=== PATIENT | male | born 1975 | race Caucasian/White ===

== ENCOUNTER 2019-12-11 13:25 | Inpatient (IN) | payer BC ==
[2019-12-11] MEDS ORDERED: Insulin Regular, Human 100 Units/ML 3 ML Vial IV ONE ×2 (14:21→17:33)
[2019-12-11] MEDS ORDERED: Sodium Chloride 0.9% 1,000 ML IV SCH ×2 (14:30→17:00)
[2019-12-11] MEDS: LORazepam 1 MG Tab PO PRN ×3 (14:44→22:24)
[2019-12-11] MEDS: glipiZIDE 5 MG Tab.ER PO SCH (15:06)
[2019-12-11] MEDS ORDERED: traZODone 100 MG Tab PO SCH (17:00)
[2019-12-11] MEDS ORDERED: Acetaminophen 325 MG Tab PO PRN (17:51)
--- NOTE | 2019-12-11 20:06 | HP ---
ADMISSION DATE: 12/11/2019 CHIEF COMPLAINT: Diabetic ketoacidosis. HISTORY OF PRESENT ILLNESS: Chava is a 44-year-old man who was first noted to have an elevated blood sugar back in June of 2019. He did not pursue this back at that time when recommended, and now when seen in the office today by Dr. Carver, was found to have acidemia, hyponatremia, and a blood sugar of 313. He had lost 20 pounds of weight in the last 8 weeks and went in because of extreme weakness, fatigue, thirst, and urinary frequency. Chava denies any recent infections, fever, chills, sweats, cough, any pain, UTI symptoms, vomiting, diarrhea, etc. PAST MEDICAL HISTORY: He was hospitalized for pancreatitis and states that he had surgical removal of a pseudocyst. He also shows had previous admissions for alcoholism with DTs back in 2014, chronic pancreatitis back in 2012. He has had longstanding anxiety disorder. As of November 2018, he is still felt to be actively practicing alcoholic. MEDICATIONS: 1. Seroquel 600 mg at bedtime. 2. Ativan 1 mg t.i.d. p.r.n. ALLERGIES: None known. HABITS: Nonsmoker. He reports he drinks 2 beers three times a week. He drinks multiple caffeinated sodas, both Coke, Mountain Dew, etc. No coffee. FAMILY HISTORY: The patient's father is 75 and healthy. Mother is age 75 and has anxiety. He has 4 siblings, two with anxiety disorder. SOCIAL HISTORY: The patient has been for 20 years. He has 3 children; ages 16, 15, and 20 months. He works at [employer] and his is a it manager at [employer]. REVIEW OF SYSTEMS: GENERAL: No seizures, syncope. He has a weight loss as mentioned. SKIN: No rash. HEENT: No recent changes in hearing or vision. He does not wear glasses. No sore throat or URI. PULMONARY: No cough or purulent sputum. CARDIOVASCULAR: No chest pain or palpitations. GASTROINTESTINAL: No abdominal pain, nausea, diarrhea, constipation, hematochezia, or melena. GENITOURINARY: He does report urinary frequency and nocturia x4 to 5. EXTREMITIES: No swelling, joint inflammation, skin rash. PHYSICAL EXAMINATION: GENERAL: He is alert and comfortable, but somewhat anxious. VITAL SIGNS: Blood pressure 104/62, pulse 92 and regular, respirations normal, temperature 96.9, weight 169 pounds. SKIN: Anicteric, warm, dry without rash. HEENT: Show clear TMs. Pupils equal and reactive. Oropharynx clear. NECK: Supple. Thyroid is normal. LUNGS: Clear to the bases. BACK: Straight, nontender. HEART: Regular without murmur, rub, or gallop. ABDOMEN: Normal bowel sounds. Soft and nontender. No masses or organomegaly. EXTREMITIES: Warm, well perfused. Good pulses. No edema. LABORATORY DATA: Glucose 313, sodium 127, BUN 11, creatinine 1.17. Glycated hemoglobin 13.7. ASSESSMENT: 1. Diabetic ketoacidosis with type 2 diabetes, uncontrolled. 2. Recent exacerbation in type 2 diabetes. 3. Acute on chronic alcoholism. 4. Chronic anxiety disorder. PLAN: He is admitted for IV rehydration with normal saline. We will use insulin for glucose management. Start him on oral agent for diabetes and arrange diabetic teaching. /[id number] BROOKS/JOSE R
[2019-12-11] MEDS ORDERED: buPROPion 150 MG Tab.ER PO SCH (21:00)
[2019-12-11] MEDS ORDERED: QUEtiapine 100 MG Tab PO SCH (21:00)
[2019-12-11] MEDS ORDERED: Cyclobenzaprine 10 MG Tab PO ONE (21:09)
[2019-12-11] MEDS: Sodium Chloride 0.9% 1,000 ML IV SCH ×2 (21:10→22:23)
[2019-12-11] MEDS ORDERED: Sodium Chloride 0.9% 1,000 ML IV ONE (21:11)
[2019-12-11] MEDS ORDERED: Insulin Lispro 100 Unit/ML 3 ML KwikPen SUBCUT ONE ×2 (21:11→21:19)
[2019-12-11] MEDS: Insulin Lispro 100 Unit/ML 3 ML KwikPen SUBCUT SCH (21:23)
[2019-12-12] MEDS: Sodium Chloride 0.9% 1,000 ML IV SCH (04:36)
[2019-12-12] MEDS ORDERED: metFORMIN 500 MG Tab PO SCH (08:00)
[2019-12-12] MEDS ORDERED: Venlafaxine 150 MG Cap.ER PO SCH (09:00)
[2019-12-12] MEDS: Insulin Lispro 100 Unit/ML 3 ML KwikPen SUBCUT SCH ×2 (09:30→11:52)
[2019-12-12] MEDS: LORazepam 1 MG Tab PO PRN ×2 (09:33→11:56)
[2019-12-12] MEDS: glipiZIDE 5 MG Tab.ER PO SCH (09:33)
--- NOTE | 2019-12-12 10:52 | DISCH ---
DISCHARGE DATE: 12/12/2019 PRIMARY FINAL DIAGNOSIS: Diabetic ketoacidosis with hyperglycemia. OTHER DIAGNOSES: 1. Chronic anxiety disorder. 2. Acute and chronic alcoholism. OPERATIONS: None. COMPLICATIONS: None. SUMMARY: Chava is a 44-year-old man who was admitted from the clinic because of a high blood sugar and an A1c of 13.5. This apparently represented diabetes of onset in the last 12 to 24 months. He was admitted, bolused with IV normal saline and his IV fluid was continued. He had a blood sugar of over 500 at midnight, and with supplemental insulin, this was down to 159 on the morning of discharge. He was started on glipizide 5 mg daily and metformin 500 mg b.i.d. in addition alcohol counseling was offered to the patient, however, he states that he attends AA and does not need current counseling. The patient is discharged in improved condition to follow up with an appointment with Dr. Carver to recheck his blood sugar and diabetes next week and an appointment is being set up for him to see Antonella Reyez RN, CDE for diabetic education at [facility] in [place]. I have also counseled him that he needs to quit alcohol 100% and follow a vigorous diabetic diet. /[id number] BROOKS/JOSE R
[2019-12-12 15:08] VITALS: BP 111/77; PULSE 83
== END 2019-12-12 12:10 | disposition home or self-care (01) | DRG 420 ==
LOC: FB.MS 13:25
PROVIDERS: ADMIT Family Medicine; ATTEND Family Medicine
DX: E11.10 Type 2 diabetes mellitus with ketoacidosis without coma (principal); F41.9 Anxiety disorder, unspecified; F10.20 Alcohol dependence, uncomplicated; Z79.4 Long term (current) use of insulin
CPT/HCPCS: 36415; 80069; 81001; 82947; 82962; 85025; A9270-GY; J1815; J1815-GY; J7030

== ENCOUNTER 2025-01-24 15:56 | Emergency (ER) | payer BC ==
[2025-01-24] MEDS ORDERED: Sodium Chloride 0.9% 10 ML Syringe FLUSH PRN (16:29)
[2025-01-24 17:13] LABS: BASOPHILS ABSOLUTE AUTO 0.0 x10-3/uL (0.0-0.3); BASOPHILS PERCENT AUTO 0.5 % (0.3-3.8); EOSINOPHILS ABSOLUTE AUTO 0.1 x10-3/uL (0.0-0.6); EOSINOPHILS PERCENT AUTO 1.6 % (0.1-6.8); LYMPHOCYTES ABSOLUTE AUTO 1.2 x10-3/uL (0.5-4.5); LYMPHOCYTES PERCENT AUTO 17.2 % (15.8-45.3); MEAN PLATELET VOLUME 7.9 fL (6.7-11.0); MONOCYTES ABSOLUTE AUTO 1.2 x10-3/uL (0.0-1.2); MONOCYTES PERCENT AUTO 16.1 % (5.5-15.2); NEUTROPHILS ABSOLUTE AUTO 4.7 x10-3/uL (1.7-6.9); NEUTROPHILS PERCENT AUTO 64.6 % (40.3-71.8); PLATELET COUNT,PLT 271 x10(3)uL (117-477); RED BLOOD CELL COUNT 4.67 x10(6)uL (3.90-5.90); RED CELL DISTRIBUTION WIDTH 14.3 % (12.4-15.0); WHITE BLOOD CELL COUNT,WBC 7.2 x10-3/uL (3.2-10.1)
[2025-01-24] MEDS: LORazepam 2 MG/ML SDV IVPUSH STA (17:22)
[2025-01-24 17:24] LABS: BLOOD UREA NITROGEN,BUN 14 mg/dL (7-18); CARBON DIOXIDE,CO2 26 mmol/L (21-32); CHLORIDE,CL 92 mmol/L (100-110); CREATININE 1.8 mg/dL (0.70-1.30); ESTIMATED GFR 45 mL/min (>60); GLUCOSE RANDOM 226 mg/dL (80-116); POTASSIUM,K 4.0 mmol/L (3.5-5.3); SODIUM,NA 130 mmol/L (135-145)
[2025-01-24 17:33] LABS: ETHANOL BLOOD MEDICAL 0.04 % (<0.03)
[2025-01-24 17:40] LABS: A/G RATIO 1.2; ALANINE AMINOTRANSFERASE,ALT 27 U/L (12-36); ASPARTATE AMNIOTRANSFERASE,AST 29 IU/L (5-25); BILIRUBIN TOTAL 0.7 mg/dL (0.1-1.3); PHOSPHORUS 3.9 mg/dL (2.6-4.6); PROTEIN TOTAL,TP 7.8 g/dL (6.0-8.0)
[2025-01-24 17:43] LABS: CREATINE KINASE,CK 400 IU/L (60-160)
[2025-01-24 17:44] LABS: AMPHETAMINES SCREEN, URINE NEGATIVE (NEGATIVE); METHADONE SCREEN, URINE NEGATIVE (NEGATIVE); METHAMPHETAMINE SCREEN, URINE NEGATIVE (NEGATIVE)
[2025-01-24 17:45] LABS: BUPRENORPHINE SCREEN,URINE NEGATIVE (NEGATIVE); OXYCODONE SCREEN,URINE NEGATIVE (NEGATIVE)
[2025-01-24 20:31] LABS: AMMONIA, PLASMA 15
[2025-01-24 20:50] VITALS: BP 129/83; PULSE 96
[2025-01-27 14:05] LABS: THYROXINE FREE 1.0 ng/dL (0.9-1.7)
== END 2025-01-24 21:11 | disposition home or self-care (01) ==
LOC: FB.ED 15:56
DX: R44.1 Visual hallucinations (principal); E86.0 Dehydration; N17.9 Acute kidney failure, unspecified; G25.81 Restless legs syndrome; E11.9 Type 2 diabetes mellitus without complications; F10.10 Alcohol abuse, uncomplicated; Z79.899 Other long term (current) drug therapy; Z79.84 Long term (current) use of oral hypoglycemic drugs
CPT/HCPCS: 70450; 80053; 80307; 82140; 82550; 83735; 84100; 84439; 84443; 84484; 85025; 93005; 96361; 96372; 96374; 99285; J2060; J2359; J7030; 93010; 99284

== ENCOUNTER 2025-03-21 07:27 | Day surgery (SDC) | payer BC ==
[~2025-03-21 07:27] MED LIST: Sodium Chloride 0.9% 10 ML Syringe FLUSH PRN
[2025-03-21] MEDS ORDERED: Midazolam 1 MG/ML 2 ML SDV IV ONE (07:28)
[2025-03-21] MEDS ORDERED: Ketamine 500 mg/10 ML MDV IV ONE (07:28)
[2025-03-21] MEDS ORDERED: Propofol 200 MG/20 ML SDV IV ONE (07:28)
[2025-03-21] MEDS: Lactated Ringers 1,000 ML IV SCH (08:06)
[2025-03-21 08:53] VITALS: BP 106/76; PULSE 112
== END 2025-03-21 10:40 | disposition home or self-care (01) ==
LOC: FB.SDS 07:27
PROVIDERS: ATTEND Surgery
DX: Z12.11 Encounter for screening for malignant neoplasm of colon (principal); E11.9 Type 2 diabetes mellitus without complications; Z79.84 Long term (current) use of oral hypoglycemic drugs; Z79.899 Other long term (current) drug therapy; Z87.891 Personal history of nicotine dependence; Z86.0101 Personal history of adenomatous and serrated colon polyps
CPT/HCPCS: 00811; 82947; A9270-GY; J2003; J2250; J2704; J3490; J7120